=== PATIENT | female | born 1995 | race Caucasian/White ===

== ENCOUNTER 2020-10-22 19:40 | Emergency (ER) | payer BC, OTHER ==
[~2020-10-22] VITALS: Ht 165.1 cm; Wt 53.5 kg
[2020-10-22] MEDS ORDERED: HYDROCODON-ACE1 EA10 PO (19:53)
== END 2020-10-22 21:31 | disposition home or self-care (01) ==
LOC: ED 19:40
DX: B34.9 Viral infection, unspecified (principal); Z20.822 Contact with and (suspected) exposure to COVID-19; F17.200 Nicotine dependence, unspecified, uncomplicated; Z88.0 Allergy status to penicillin
CPT/HCPCS: 87502; 99284; C9803; U0003

== ENCOUNTER 2021-04-18 13:17 | Emergency (ER) | payer OTHER ==
[~2021-04-18] VITALS: Ht 165.1 cm; Wt 53.5 kg
[~2021-04-18 13:17] MED LIST: HYDROCODON-ACE1 EA10 PO
--- OUTSIDE RECORDS SUMMARY | 2021-04-18 13:54 | XMS ---
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 Sarah has no Care Guidelines for this patient. [facility] VISIT COUNT (12 MO.) 2 JORGE Ayala TOTAL 2 NOTE: Visits indicate total known visits. ED/C VISIT TRACKING (12 MO.) 04/18/2021 13:18 [facility] [place] TYPE: Emergency COMPLAINT: - NAUSEA,VOMITING 10/22/2020 19:41 [facility] [place] TYPE: Emergency COMPLAINT: - FLU SYMPTOMS DIAGNOSES: - Allergy status to penicillin - Headache, unspecified - Viral infection, unspecified - Nicotine dependence, unspecified, uncomplicated INPATIENT VISIT TRACKING (12 MO.) No inpatient visits to display in this time frame [email or web address]
[2021-04-18] MEDS ORDERED: ONDANSETRON ODT8 MG PO (16:43)
[2021-04-18] MEDS ORDERED: CEPHALEXIN500 M1 PO (18:04)
== END 2021-04-18 18:48 | disposition home or self-care (01) ==
LOC: ED 13:17
DX: N39.0 Urinary tract infection, site not specified (principal); K29.70 Gastritis, unspecified, without bleeding; F17.200 Nicotine dependence, unspecified, uncomplicated; Z88.0 Allergy status to penicillin
CPT/HCPCS: 76705; 80053; 81001; 83690; 83735; 84703; 85025; 96374; 96375; 99284-25; J0696; J2405; J7030

== ENCOUNTER 2022-05-25 12:39 | Emergency (ER) | payer OTHER ==
[~2022-05-25] VITALS: Ht 165.1 cm; Wt 59.0 kg
[~2022-05-25 12:39] MED LIST changes: +CEPHALEXIN500 M1 PO; +ONDANSETRON ODT8 MG PO
--- OUTSIDE RECORDS SUMMARY | 2022-05-25 12:42 | XMS ---
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 ED/UCC VISIT TRACKING (12 MO.) 05/25/2022 12:40 [facility] [place] TYPE: Emergency COMPLAINT: - POSS UTI, NAUSEA, FATIGUE INPATIENT VISIT TRACKING (12 MO.) No inpatient visits to display in this time frame [email or web address]
[2022-05-25] MEDS ORDERED: CEPHALEXIN500 M1 PO (16:14)
[2022-05-25] MEDS ORDERED: ONDANSETRON ODT4 MG PO (16:14)
== END 2022-05-25 17:28 | disposition home or self-care (01) ==
LOC: ED 12:39
DX: O23.41 Unspecified infection of urinary tract in pregnancy, first trimester (principal); N39.0 Urinary tract infection, site not specified; O99.331 Smoking (tobacco) complicating pregnancy, first trimester; F17.200 Nicotine dependence, unspecified, uncomplicated; Z88.0 Allergy status to penicillin
CPT/HCPCS: 81001; 84703; 99283; A9270

== ENCOUNTER 2022-12-16 19:00 | Inpatient (IN) | payer OTHER ==
[~2022-12-16 19:00] MED LIST changes: +ONDANSETRON ODT4 MG PO
--- NOTE | 2022-12-16 21:33 | PR ---
[facility] [address] [place], [place] [address] Signed AP Progress Notes Datetime Report Generated by CPN: 12/16/2022 21:33 Chief Complaint: vaginal bleeding PHYSICAL EXAM: [id number] Abdomen: Normal Extremities: Normal Pelvic: Adequate Physical Exam Comments: Abdomen nontender, still heavy bloody show, no gross active bleeding Impression: Probably early labor, with bloody show Plan: Continuous monitoring and recheck in 1-2 hours, sooner if bleeding increases or signs of distress. Discussed plan with patient. VITAL SIGNS: [id number] Vital Signs: Reviewed; Within Normal Limits EXAM: [id number] Contraction Comments: every 3-4 minutes MEMBRANES: [id number] Membranes: Intact FETUS A: [id number] FHR Baseline: 140 Variability: Moderate 6-25bpm Presentation: Vertex FETUS B: [id number] PROGRESS NOTES: [id number] Signing Physician: David Carrizales MD Copies: ~ *Electronically Signed* 12/16/22 213 DAVID CARRIZALES MD PATIENT NAME: WALLACEHanhANALIA PROGRESS NOTE DATE OF : [birth year] PHYSICIAN: DAVID CARRIZALES MD RPT #: [id number] REPORT IS CONFIDENTIAL AND NOT TO BE RELEASED WITHOUT AUTHORIZATION
[2022-12-16 23:04] VITALS: BP 129/62
--- NOTE | 2022-12-18 07:05 | PR ---
[facility] [address] [place], [place] [address] Signed PP Progress Notes Datetime Report Generated by CPN: 12/18/2022 07:05 SUBJECTIVE: [id number] Pain: Within Normal Limits Nausea/Vomiting: Denies Flatus: Yes Bowel Movement: No Vital Signs: [id number] Vital Signs: Reviewed; Within Normal Limits Cardiovascular: Normal Respiratory: Normal Abdomen/Uterus: Normal Lochia: Normal Vulva/Perineum: Not Done Breasts: Not Done CVA Tenderness: Normal Extremities: Normal Incision: Not Applicable Progress: Normal Exam Comments: Fundus firm U-2 nontender IMPRESSION/PLAN/PROCEDURES: [id number] Impression: Normal Progression Plan: Discharge Progress Notes: Pt seen and examined. Doing well. Ambulating, voiding, and tolerating full diet. Pain and lochia minimal. well. Desires d/c to boarder status. No concerns. Reviewed d/c instructions in detail. All questions answered. Planning vasectomy for pp contraception. Signing Physician: Chuck Gonzalez DO Copies: ~ *Electronically Signed* 12/18/22 0705 CHUCK GONZALEZ (YANA) DO PATIENT NAME: ANALIA MILLER PROGRESS NOTE DATE OF : 89 PHYSICIAN: CHUCK GONZALEZ) DO RPT #: [id number] REPORT IS CONFIDENTIAL AND NOT TO BE RELEASED WITHOUT AUTHORIZATION
== END 2022-12-18 09:00 | disposition home or self-care (01) | DRG 806 ==
LOC: FBCO 19:00 → FBC 22:16
PROVIDERS: ADMIT General Practice; ATTEND Obstetrics & Gynecology
PROC: 10E0XZZ Delivery of Products of Conception, External Approach (ICD-10-PCS; principal; 2022-12-17)
PROC: 0KQM0ZZ Repair Perineum Muscle, Open Approach (ICD-10-PCS; 2022-12-17)
DX: O62.3 Precipitate labor (principal); O99.324 Drug use complicating childbirth; Z37.0 Single live birth; F32.A Depression, unspecified; O70.1 Second degree perineal laceration during delivery; F41.9 Anxiety disorder, unspecified; Z20.822 Contact with and (suspected) exposure to COVID-19; O99.344 Other mental disorders complicating childbirth; O69.81X0 Labor and delivery complicated by cord around neck, without compression, not applicable or unspecified; G89.29 Other chronic pain; Z3A.37 37 weeks gestation of pregnancy; F11.21 Opioid dependence, in remission; K00.7 Teething syndrome; M51.36 Other intervertebral disc degeneration, lumbar region; F17.210 Nicotine dependence, cigarettes, uncomplicated; Z67.10 Type A blood, Rh positive; Z88.0 Allergy status to penicillin; Z87.42 Personal history of other diseases of the female genital tract; O99.334 Smoking (tobacco) complicating childbirth
CPT/HCPCS: 36415; 76815; 76819; 85027; 86850; 86900; 86901; 87502; A9270; C9803; J2590; J7121; U0003

== ENCOUNTER 2024-05-07 18:38 | Emergency (ER) | payer OTHER ==
[~2024-05-07] VITALS: Ht 165.1 cm; Wt 55.7 kg
[2024-05-07] MEDS ORDERED: KETOROLAC TROMETHAMINE 60 MG/2 ML VIAL IM ONE (19:30)
[2024-05-07] MEDS ORDERED: diazePAM 10 MG/2 ML SYR IM ONE (19:30)
[2024-05-07] MEDS ORDERED: CYCLOBENZAPRINE10 MG PO (21:36)
[2024-05-07] MEDS ORDERED: CYCLOBENZAPRINE HCL 10 MG HOME.PACK PO ONE (21:45)
[2024-05-07] MEDS ORDERED: methylPREDNISolone 4 MG HOME.PACK PO ONE (21:45)
[2024-05-07 22:00] VITALS: BP 102/59
== END 2024-05-07 22:00 | disposition home or self-care (01) ==
LOC: ED 18:38
DX: S90.32XA Contusion of left foot, initial encounter (principal); S39.012A Strain of muscle, fascia and tendon of lower back, initial encounter; W01.0XXA Fall on same level from slipping, tripping and stumbling without subsequent striking against object, initial encounter; F17.200 Nicotine dependence, unspecified, uncomplicated; Z88.0 Allergy status to penicillin
CPT/HCPCS: 36415; 72100; 73630; 84703; 96372; 99283-25; J1885; J3360